=== PATIENT | male | born 1960 | race Caucasian/White ===

== ENCOUNTER 2020-12-08 10:37 | Emergency (ER) | payer OTHER, MEDICAID ==
[~2020-12-08] VITALS: Ht 175.3 cm; Wt 79.4 kg
[2020-12-08 10:42] VITALS: BP 110/77
[2020-12-08 11:10] LABS: Basophils # (auto) 0.1 10 ^3/uL (0-0.2); Basophils % (auto) 0.6 % (0.0-2.0); Eosinophils # (auto) 0.4 10 ^3/uL (0-0.8); Eosinophils % (auto) 3.1 % (0.0-7.0); Hematocrit 42.5 % (41.0-53.0); Hemoglobin 14.9 g/dL (13.5-17.5); Lymphocytes # (auto) 3.2 10 ^3/uL (0.4-5.4); Mean Corpuscular Hemoglobin 31.3 pg (28.0-32.0); Mean Corpuscular Hgb Conc. 35.2 g/dL (32.0-36.0); Monocytes # (auto) 1.1 10 ^3/uL (0-1.3); Monocytes % (auto) 7.9 % (0.0-12.0); Neutrophils % (auto) 65.4 % (37.0-80.0); Nucleated Red Blood Cells % 0.1 %; Red Blood Cells 4.77 10^6/uL (4.5-5.90); Red Cell Distribution Width 13.2 % (11.8-14.3); White Blood Cell 13.7 10^3/uL (4.4-10.8)
[2020-12-08 11:25] LABS: Urine Bacteria FEW /hpf (None Seen); Urine Blood 3+ /uL (Negative); Urine Hyaline Cast FEW /lpf (0 - 2); Urine WBC 13 /hpf (0 - 3)
[2020-12-08 11:26] LABS: Potassium 4.3 mmol/L (3.5-5.1)
[2020-12-08 11:36] LABS: Albumin 3.9 g/dL (3.4-5.0); Bilirubin, Total 0.5 mg/dL (0.2-1.0); Calcium 9.2 mg/dL (8.5-10.1); Total Protein 7.1 g/dL (6.4-8.2)
[2020-12-08] MEDS ORDERED: cefTRIAXone W LIDOCAINE 1 GM IM IM ONE (15:30)
[2020-12-08] MEDS ORDERED: cefTRIAXone SOD 1,000 MG VL ONE (15:46)
[2020-12-08] MEDS ORDERED: cefTRIAXone SOD 1,000 MG VL IM ONE (16:00)
== END 2020-12-08 16:04 | disposition home or self-care (01) ==
LOC: ER 10:37
DX: N39.0 Urinary tract infection, site not specified (principal); R31.9 Hematuria, unspecified; I10 Essential (primary) hypertension; E11.9 Type 2 diabetes mellitus without complications; E78.00 Pure hypercholesterolemia, unspecified; F17.210 Nicotine dependence, cigarettes, uncomplicated; Z90.89 Acquired absence of other organs; Z90.49 Acquired absence of other specified parts of digestive tract
CPT/HCPCS: 36415; 74176; 80053; 81001; 84154; 84484; 85025; 96372; 99284; J0696

== ENCOUNTER 2022-08-26 01:52 | Inpatient (IN) | payer OTHER, MEDICAID ==
[~2022-08-26] VITALS: Ht 175.3 cm; Wt 79.0 kg
[2022-08-26] MEDS ORDERED: FAMOTIDINE (10MG/ML) 2ML VL IV ONE (02:00)
[2022-08-26] MEDS ORDERED: ALBUTEROL SULF 2.5 MG/0.5ML(0.5%) NEB SOLN NEB ONE (02:00)
[2022-08-26] MEDS ORDERED: diphenhdrAMINE HCL 50 MG/1 ML VL IV ONE (02:00)
[2022-08-26] MEDS ORDERED: IPRATROPIUM BROM 0.5 MG/2.5ML INH SOL NEB ONE (02:00)
[2022-08-26] MEDS ORDERED: DexAMETHasone SOD PHOS 10MG/1ML VIAL INJ IV ONE (02:00)
[2022-08-26 02:50] LABS: Basophils # (auto) 0 10 ^3/uL (0-0.2); Basophils % (auto) 0.3 % (0.0-2.0); Eosinophils # (auto) 0.4 10 ^3/uL (0-0.8); Eosinophils % (auto) 2.9 % (0.0-7.0); Hematocrit 41.4 % (41.0-53.0); Lymphocytes # (auto) 2.7 10 ^3/uL (0.4-5.4); Lymphocytes % (auto) 21.9 % (10.0-50.0); Mean Corpuscular Hemoglobin 30.6 pg (28.0-32.0); Mean Corpuscular Hgb Conc. 33.8 g/dL (32.0-36.0); Mean Corpuscular Volume 90.6 fL (80.0-100.0); Monocytes # (auto) 0.7 10 ^3/uL (0-1.3); Monocytes % (auto) 5.6 % (0.0-12.0); Neutrophils # (auto) 8.6 10 ^3/uL (1.6-8.6); Neutrophils % (auto) 69.3 % (37.0-80.0); Red Blood Cells 4.56 10^6/uL (4.5-5.90); White Blood Cell 12.4 10^3/uL (4.4-10.8)
[2022-08-26 02:56] LABS: Albumin 3.1 g/dL (3.4-5.0); BUN/Creatinine Ratio 19.7 (10.0-20.0); Calcium 8.2 mg/dL (8.5-10.1); Potassium 4.9 mmol/L (3.5-5.1)
[2022-08-26 04:18] LABS: Bilirubin, Total 0.2 mg/dL (0.2-1.0)
[2022-08-26] MEDS ORDERED: SIMV40TA18 PO (08:32)
[2022-08-26] MEDS ORDERED: GLIP10TA9 PO (08:32)
[2022-08-26] MEDS ORDERED: OXY10CRT PO (08:32)
[2022-08-26] MEDS ORDERED: GABA-339 PO (08:32)
[2022-08-26] MEDS ORDERED: METF-372 PO (08:32)
[2022-08-26] MEDS ORDERED: ALBUTEROL SULF 2.5 MG/0.5ML(0.5%) NEB SOLN NEB PRN (09:30)
[2022-08-26] MEDS ORDERED: diphenhdrAMINE HCL 50 MG/1 ML VL IV PRN (09:30)
[2022-08-26] MEDS ORDERED: ACETAMINOPHEN 325 MG TAB PO PRN (09:30)
[2022-08-26] MEDS ORDERED: IPRATROPIUM BROM 0.5 MG/2.5ML INH SOL NEB PRN (09:30)
[2022-08-26] MEDS ORDERED: DOCUSATE SOD 100 MG CAP PO PRN (09:30)
[2022-08-26] MEDS ORDERED: DEXTROSE (50%) 50ML SYRG IV PRN (10:00)
[2022-08-26] MEDS ORDERED: SODIUM CHLORIDE 0.9% 1,000 ML IV ONE (10:15)
[2022-08-26] MEDS ORDERED: FAMOTIDINE (10MG/ML) 2ML VL IV SCH (10:37)
[2022-08-26] MEDS ORDERED: OXYCODONE W/ ACETAMINOPHEN 5/325MG TABLET PO PRN (10:45)
[2022-08-26] MEDS ORDERED: methylPREDNISolone SOD SUCC 40 MG/ML VL IV SCH (10:47)
[2022-08-26] MEDS ORDERED: ACCU-CHEK COMFORT CURVE STRIP VI SCH (11:30)
[2022-08-26] MEDS ORDERED: InsuLIN REG 1unit/0.01ml Soln (100units/ml) SC SCH ×2 (11:30→22:00)
[2022-08-26] MEDS ORDERED: oxyCODONE ER 10 MG TAB PO SCH (12:00)
[2022-08-26] MEDS ORDERED: GABAPENTIN 300 MG CAP PO SCH (14:00)
[2022-08-26] MEDS ORDERED: SODIUM CHLOR 0.9% PF (SALINE LOCK) 10ML VIAL/SYR IV SCH (14:00)
[2022-08-26 14:03] VITALS: BP 155/83
[2022-08-26] MEDS ORDERED: ATORVASTATIN 20 MG TAB PO SCH (22:00)
[2022-08-26] MEDS ORDERED: glipiZIDE 5 MG TAB PO SCH (22:00)
== END 2022-08-26 15:40 | disposition left against medical advice (07) | DRG 916 ==
LOC: ER 01:52 → EDBD 01:52 → OVERFLOW 09:58
PROVIDERS: ADMIT Nurse Practitioner Family; ATTEND Nurse Practitioner Family
DX: T78.2XXA Anaphylactic shock, unspecified, initial encounter (principal); N17.9 Acute kidney failure, unspecified; E44.1 Mild protein-calorie malnutrition; E11.65 Type 2 diabetes mellitus with hyperglycemia; E78.5 Hyperlipidemia, unspecified; F17.210 Nicotine dependence, cigarettes, uncomplicated; I10 Essential (primary) hypertension; G89.29 Other chronic pain; Z53.29 Procedure and treatment not carried out because of patient's decision for other reasons; M25.512 Pain in left shoulder; Z90.49 Acquired absence of other specified parts of digestive tract; T44.1X5A Adverse effect of other parasympathomimetics [cholinergics], initial encounter; Y92.89 Other specified places as the place of occurrence of the external cause; Z68.25 Body mass index [BMI] 25.0-25.9, adult
CPT/HCPCS: 36415; 71045; 80053; 82962; 83880; 84484; 85025; 94640; 96374; 96375; 99291; G0378; J1100; J1815; J3490

== ENCOUNTER 2023-09-08 05:25 | Inpatient (IN) | payer OTHER, MEDICAID ==
[~2023-09-08] VITALS: Ht 175.3 cm; Wt 77.5 kg
[~2023-09-08 05:25] MED LIST: GABA-339 PO; GLIP10TA9 PO; METF-372 PO; OXY10CRT PO; SIMV40TA18 PO
[2023-09-08 06:10] LABS: Basophils # (auto) 0.1 10 ^3/uL (0-0.2); Basophils % (auto) 0.6 % (0.0-2.0); Eosinophils # (auto) 0.5 10 ^3/uL (0-0.8); Eosinophils % (auto) 5.3 % (0.0-7.0); Hemoglobin 14.5 g/dL (13.5-17.5); Lymphocytes # (auto) 2.2 10 ^3/uL (0.4-5.4); Lymphocytes % (auto) 24.3 % (10.0-50.0); Mean Corpuscular Hemoglobin 31.4 pg (28.0-32.0); Mean Corpuscular Hgb Conc. 34.6 g/dL (32.0-36.0); Mean Corpuscular Volume 90.7 fL (80.0-100.0); Monocytes # (auto) 0.7 10 ^3/uL (0-1.3); Monocytes % (auto) 8.2 % (0.0-12.0); Neutrophils # (auto) 5.6 10 ^3/uL (1.6-8.6); Neutrophils % (auto) 61.6 % (37.0-80.0); Red Blood Cells 4.63 10^6/uL (4.5-5.90); Red Cell Distribution Width 12.9 % (11.8-14.3)
[2023-09-08 06:43] LABS: Albumin 4.2 g/dL (3.2-4.8); Alkaline Phosphatase 130 U/L (46-116); Anion Gap 4 (5-15); Aspartate Aminotransferase < 8 U/L (13-40); BUN/Creatinine Ratio 13.6 (10.0-20.0); Bilirubin, Total 0.4 mg/dL (0.2-1.0); Blood Urea Nitrogen 23 mg/dL (9-23); Calcium 9.2 mg/dL (8.7-10.4); Carbon Dioxide 24 mmol/L (20-30); Chloride 105 mmol/L (98-107); Potassium 4.5 mmol/L (3.5-5.1); Sodium 133 mmol/L (136-145); Total Protein 6.5 g/dL (5.7-8.2)
[2023-09-08 06:49] LABS: Alanine Aminotransferase 9 U/L (7-40)
[2023-09-08 06:50] LABS: Glucose 439 mg/dL (74-106)
[2023-09-08 08:04] VITALS: PULSE 82; RESP 16; O2SAT 98
[2023-09-08] MEDS: ASPirin 81 mg TAB PO ONE (09:04)
[2023-09-08] MEDS ORDERED: NITROGLYCERIN 0.4 MG SL TAB SL PRN (09:45)
[2023-09-08] MEDS ORDERED: MORPHINE SULFATE INJ 2 MG/ml SYRG IV PRN (09:45)
[2023-09-08] MEDS ORDERED: DEXTROSE (50%) 50ML SYRG IV PRN (10:30)
[2023-09-08] MEDS: CLOPIDOGREL BISULFATE 75 MG TAB PO SCH (10:39)
[2023-09-08] MEDS: ASPirin 81 mg TAB PO SCH (10:39)
[2023-09-08] MEDS ORDERED: LORazepam 2MG/ML-1ML VIAL IV PRN (11:00)
[2023-09-08] MEDS: SODIUM CHLORIDE 0.9% 1,000 ML IV ONE (11:10)
[2023-09-08] MEDS: OXYCODONE W/ ACETAMINOPHEN 5/325MG TABLET PO ONE (11:10)
[2023-09-08] MEDS: InsuLIN REG 1unit/0.01ml Soln (100units/ml) SC SCH ×2 (11:25→21:37)
[2023-09-08] MEDS: ACCU-CHEK COMFORT CURVE STRIP VI SCH (11:29)
[2023-09-08 13:52] VITALS: O2SAT 98
[2023-09-08 14:13] VITALS: BP 141/88; PULSE 91; RESP 14; O2SAT 98
[2023-09-08] MEDS: GABAPENTIN 300 MG CAP PO SCH (15:35)
[2023-09-08 18:36] VITALS: BP 154/77; PULSE 91; RESP 18; TEMP 98.3; O2SAT 98
[2023-09-08] MEDS ORDERED: INSUINJ37 SC (18:38)
[2023-09-08] MEDS ORDERED: SEMA2INJ3 SC (18:38)
[2023-09-08 20:19] LABS: Triglycerides 187 mg/dL (< 150)
[2023-09-08 20:20] LABS: LDL Cholesterol 170 mg/dL (< 100)
[2023-09-08 20:21] LABS: Cholesterol 224 mg/dL (< 200); HDL Cholesterol 46 mg/dL (40-59)
[2023-09-08] MEDS: OXYCODONE W/ ACETAMINOPHEN 5/325MG TABLET PO PRN (20:44)
[2023-09-08 21:00] VITALS: BP 141/76; PULSE 89; RESP 20; TEMP 99.1; O2SAT 97
[2023-09-08] MEDS: ATORVASTATIN 20 MG TAB PO SCH (21:33)
[2023-09-08 22:00] VITALS: PULSE 77; O2SAT 100
[2023-09-09] VITALS (10 sets, daily range): BP systolic 106–169; BP diastolic 67–91; PULSE 67–104; RESP 18–19; TEMP 97.9–98.6; O2SAT 98–99
[2023-09-09 07:07] LABS: RPR Non Reactive (Non Reactive)
[2023-09-09 07:08] LABS: Albumin 3.9 g/dL (3.2-4.8); Alkaline Phosphatase 114 U/L (46-116); Anion Gap 3 (5-15); Aspartate Aminotransferase < 8 U/L (13-40); BUN/Creatinine Ratio 17.7 (10.0-20.0); Blood Urea Nitrogen 29 mg/dL (9-23); Calcium 9.2 mg/dL (8.7-10.4); Carbon Dioxide 25 mmol/L (20-30); Chloride 113 mmol/L (98-107); Cholesterol 211 mg/dL (< 200); HDL Cholesterol 40 mg/dL (40-59); LDL Cholesterol 160 mg/dL (< 100); Potassium 4.7 mmol/L (3.5-5.1); Sodium 141 mmol/L (136-145); Triglycerides 147 mg/dL (< 150)
[2023-09-09 07:09] LABS: Bilirubin, Total 0.4 mg/dL (0.2-1.0); Total Protein 5.9 g/dL (5.7-8.2)
[2023-09-09 07:11] LABS: Alanine Aminotransferase < 9 U/L (7-40); Glucose 225 mg/dL (74-106)
[2023-09-09 11:39] LABS: Amphetamine Screen, Urine Neg (NEGATIVE); Barbiturate Scree,Urine Neg (NEGATIVE); Benzodiazephine Screen, Urine Neg (NEGATIVE); Cannabinoid Screen, Urine Neg (NEGATIVE); Cocaine Screen, Urine Neg (NEGATIVE); Opiate Scree,Urine Neg (NEGATIVE); Phencyclidine Screen, Urine Neg (NEGATIVE)
[2023-09-09 11:40] LABS: Creatinine, Urine 112.66 mg/dL (30.0-125.0)
[2023-09-09] MEDS: SODIUM CHLORIDE 0.9% 1,000 ML IV ONE (14:45)
[2023-09-09 14:59] LABS: Urine Bacteria FEW /hpf (None Seen); Urine Blood Negative /uL (Negative); Urine Clarity Clear (Clear); Urine Color Yellow (Yellow); Urine Protein, UAD 2+ (Negative); Urine Specific Gravity 1.018 (1.001-1.035); Urine Urobilinogen Normal (Negative); Urine WBC 5 /hpf (0 - 3); Urine pH 5.5 (5.0-9.0)
[2023-09-09] MEDS: amLODIPine BESYLATE 5 MG TAB PO ONE (18:34)
[2023-09-09] MEDS: GABAPENTIN 300 MG CAP PO SCH (21:23)
[2023-09-09] MEDS: INSULIN LANTUS (GLARGINE) 1 /0.01ml (100units/ml) SC SCH (21:43)
[2023-09-10 00:13] VITALS: PULSE 74; O2SAT 100
[2023-09-10 01:43] VITALS: PULSE 77; O2SAT 96
[2023-09-10 05:23] LABS: Anion Gap 5 (5-15); Carbon Dioxide 22 mmol/L (20-30); Chloride 114 mmol/L (98-107); Potassium 3.9 mmol/L (3.5-5.1); Sodium 141 mmol/L (136-145)
[2023-09-10 05:29] LABS: BUN/Creatinine Ratio 17.3 (10.0-20.0); Blood Urea Nitrogen 27 mg/dL (9-23); Glucose 127 mg/dL (74-106)
[2023-09-10 08:00] VITALS: PULSE 86
[2023-09-10] MEDS: amLODIPine BESYLATE 5 MG TAB PO SCH (08:49)
[2023-09-10 09:00] VITALS: BP 173/93; PULSE 88; RESP 18; TEMP 98.1; O2SAT 98
[2023-09-10] MEDS ORDERED: ASPI81CH74 PO (10:36)
[2023-09-10] MEDS ORDERED: INSLANTI SC (10:36)
[2023-09-10] MEDS ORDERED: CLOP75TA28 PO (10:36)
[2023-09-10] MEDS ORDERED: AMLO1TAB23 PO (10:36)
[2023-09-10] MEDS ORDERED: ATOR20TA50 PO (10:36)
[2023-09-10 12:53] VITALS: BP 173/93; TEMP 36.7
[2023-09-10 13:00] VITALS: BP 144/70; PULSE 82; RESP 18; TEMP 97.5; O2SAT 96
== END 2023-09-10 13:12 | disposition home or self-care (01) | DRG 64 ==
LOC: ER 05:25 → TELE 09:40 → TELE-EAST 18:39
PROVIDERS: ADMIT Nurse Practitioner Family; ATTEND Nurse Practitioner Acute Care
PROC: 5A09357 Assistance with Respiratory Ventilation, Less than 24 Consecutive Hours, Continuous Positive Airway Pressure (ICD-10-PCS; principal; 2023-09-08)
PROC: 5A09357 Assistance with Respiratory Ventilation, Less than 24 Consecutive Hours, Continuous Positive Airway Pressure (ICD-10-PCS; 2023-09-09)
DX: I63.9 Cerebral infarction, unspecified (principal); N17.0 Acute kidney failure with tubular necrosis; G81.94 Hemiplegia, unspecified affecting left nondominant side; G89.29 Other chronic pain; G47.10 Hypersomnia, unspecified; F17.200 Nicotine dependence, unspecified, uncomplicated; I12.9 Hypertensive chronic kidney disease with stage 1 through stage 4 chronic kidney disease, or unspecified chronic kidney disease; E11.22 Type 2 diabetes mellitus with diabetic chronic kidney disease; N18.30 Chronic kidney disease, stage 3 unspecified; E11.65 Type 2 diabetes mellitus with hyperglycemia; R29.701 NIHSS score 1; E11.42 Type 2 diabetes mellitus with diabetic polyneuropathy; M54.50 Low back pain, unspecified; E78.5 Hyperlipidemia, unspecified; Z90.49 Acquired absence of other specified parts of digestive tract; Z83.3 Family history of diabetes mellitus; Z87.442 Personal history of urinary calculi; Z79.82 Long term (current) use of aspirin; Z79.02 Long term (current) use of antithrombotics/antiplatelets; Z79.899 Other long term (current) drug therapy; Z79.4 Long term (current) use of insulin
CPT/HCPCS: 36415; 70450; 71045; 76775; 80048; 80053; 80061; 80307; 81001; 82010; 82570; 82962; 83036; 83880; 84300; 84443; 84484; 85025; 86592; 93005; 93306; 93886; 94660; 97116; 97163; 97530; G0378; J1815